=== PATIENT | male | born 1985 | race Caucasian/White ===

== ENCOUNTER → 2017-07-07 | Outpatient (CLI) | payer OTHER ==
[~2017-07-07] MED LIST: NKHM
[2017-07-07 09:08] LABS: CKMB 0.8 ng/ml (0.5-3.6)
[2017-07-07 09:15] LABS: TROPONIN I < 0.015 ng/ml (<0.045)
== END | disposition home or self-care (01) ==
LOC: LAB 07:56 → CARD 08:30
PROVIDERS: Nurse Practitioner Family
DX: I51.7 Cardiomegaly (principal); R74.8 Abnormal levels of other serum enzymes; M62.82 Rhabdomyolysis